=== PATIENT | male | born 1945 | race Caucasian/White ===

== ENCOUNTER 2022-01-18 13:24 | Emergency (ER) | payer MEDICARE, MEDICAID ==
[2022-01-18] MEDS ORDERED: Sodium Chloride 0.9% 2.5 ML Syringe FLUSH PRN (13:31)
[2022-01-18] MEDS ORDERED: Sodium Chloride 0.9% 10 ML Syringe FLUSH PRN (13:31)
[2022-01-18] MEDS ORDERED: Iopamidol 755 MG/ML 500 ML Multipack Bottle IVPUSH STA (14:01)
[2022-01-18 16:02] LABS: BLOOD UREA NITROGEN,BUN 9 mg/dL (7.0-18.0); CHLORIDE,CL 102 mmol/L (98-107); GLUCOSE RANDOM 97 mg/dL (74-106); SODIUM,NA 137 mmol/L (136-148)
[2022-01-18 16:05] LABS: ESTIMATED GFR 69 mL/min (>60)
[2022-01-18] MEDS ORDERED: valACYclovir 500 MG Tab PO ONE (16:21)
[2022-01-18] MEDS ORDERED: predniSONE 20 MG Tab PO ONE (16:21)
== END 2022-01-18 16:43 | disposition home or self-care (01) ==
LOC: MW.ED 13:24
DX: G51.0 Bell's palsy (principal); Z20.822 Contact with and (suspected) exposure to COVID-19
CPT/HCPCS: 36415; 70450; 70496; 70498; 71045; 80053; 81003; 84443; 84484; 85025; 85610; 85730; 93005; 99284; A9270; J3490; Q9967; U0002; 93010